=== PATIENT | female | born 1970 | race Caucasian/White ===

== ENCOUNTER 2019-04-23 10:24 | Outpatient (CLI) | payer OTHER, SELFPAY ==
--- NOTE | ~2019-04-23 | MM_ITS ---
EXAMINATION: MM screening gordon BI w rik HISTORY: Screening mammogram TECHNIQUE: Craniocaudal and mediolateral oblique 3-D tomosynthesis images were obtained and synthetic 2-D images were generated. CAD analysis was submitted and interpreted. COMPARISON: No prior mammogram is available for comparison at this institution. BREAST PARENCHYMAL COMPOSITION: The breasts are heterogeneously dense, which may obscure small masses .2 FINDINGS: Scattered benign-appearing calcifications are present. There is no evidence of suspicious m ass, calcification, or architectural distortion to suggest malignancy in either breast. IMPRESSION: 1. No mammographic evidence of malignancy. 2. Recommend routine screening mammography in one year. BI-RADS Category 2: Benign finding(s). Reviewed, dictated and finalized at location A. UNITY SUPPORT WORKER
== END 2019-04-23 10:25 | disposition home or self-care (01) ==
PROVIDERS: PCP Internal Medicine; Visit Provider Nurse Practitioner
DX: Z12.31 Encounter for screening mammogram for malignant neoplasm of breast (principal)
CPT/HCPCS: 77063; 77067

== ENCOUNTER 2019-05-23 08:59 | Outpatient (CLI) | payer OTHER, SELFPAY ==
--- NOTE | 2019-05-23 10:30 | NEURO_ITS ---
Patient Number: [id number] Impression: # Complains of numbness of hands. # Not enough to make diagnosis of Carpal Tunnel Syndrome at this time. # No ulnar neuropathy. # Normal needle/EMG exam. # Clinical correlation recommended. Nerve Conduction Studies Anti Sensory Summary Table Stim Site NR Peak (ms) P-T Amp (?V) Site1 Site2 Delta-P (ms) Dist (cm) Vincent (m/s) Left Median Anti Sensory (2-3nd Digit) Wrist 3.2 95.2 Wrist 2-3nd Digit 3.2 14.0 44 Wrist 3.2 85.6 Wrist 2-3nd Digit 3.2 14.0 44 Right Median Anti Sensory (2-3nd Digit) Wrist 2.8 94.4 Wrist 2-3nd Digit 2.8 14.0 50 Wrist 2.7 92.0 Wrist 2-3nd Digit 2.8 14.0 50 Left Radial Anti Sensory (Base 1st Digit) Wrist 1.9 32.4 Wrist Base 1st Digit 1.9 0.0 Right Radial Anti Sensory (Base 1st Digit) Wrist 2.1 23.5 Wrist Base 1st Digit 2.1 0.0 Left Ulnar Anti Sensory (5th Digit) Wrist 2.3 65.7 Wrist 5th Digit 2.3 14.0 61 Right Ulnar Anti Sensory (5th Digit) Wrist 2.4 69.1 Wrist 5th Digit 2.4 14.0 58 Motor Summary Table Stim Site NR Onset (ms) O-P Amp (mV) Site1 Site2 Delta-0 (ms) Dist (cm) Vincent (m/s) Left Median Motor (Abd Poll Brev) Wrist 3.5 2.3 Elbow Wrist 3.9 26.0 67 Elbow 7.4 1.9 Right Median Motor (Abd Poll Brev) Wrist 3.1 1.4 Elbow Wrist 3.7 24.0 65 Elbow 6.8 1.3 Left Ulnar Motor (Abd Dig Minimi) Wrist 2.6 6.9 A Elbow Wrist 4.7 27.0 57 A Elbow 7.3 6.0 Right Ulnar Motor (Abd Dig Minimi) Wrist 2.4 5.8 A Elbow Wrist 4.2 25.0 60 A Elbow 6.6 5.2 F Wave Studies NR F-Lat (ms) L-R F-Lat (ms) Left Median (Mrkrs) (Abd Poll Brev) 25.61 1.35 Right Median (Mrkrs) (Abd Poll Brev) 24.27 1.35 Left Ulnar (Mrkrs) (Abd Dig Min) 24.76 0.51 Right Ulnar (Mrkrs) (Abd Dig Min) 25.27 0.51 EMG Side Muscle Nerve Root Ins Act Fibs Amp Dur Recrt Comment Right 1stDorInt Ulnar C8-T1 Nml Nml Nml Nml Nml Right Ext Indicis Radial (Post Int) C7-8 Nml Nml Nml Nml Nml Right Ext Digitorum Radial (Post Int) C7-8 Nml Nml Nml Nml Nml Right BrachioRad Radial C5-6 Nml Nml Nml Nml Nml Right PronatorTeres Median C6-7 Nml Nml Nml Nml Nml Right Abd Poll Brev Median C8-T1 Nml Nml Nml Nml Nml Left 1stDorInt Ulnar C8-T1 Nml Nml Nml Nml Nml Left Ext Indicis Radial (Post Int) C7-8 Nml Nml Nml Nml Nml Left Ext Digitorum Radial (Post Int) C7-8 Nml Nml Nml Nml Nml Left BrachioRad Radial C5-6 Nml Nml Nml Nml Nml Left PronatorTeres Median C6-7 Nml Nml Nml Nml Nml Left Abd Poll Brev Median C8-T1 Nml Nml Nml Nml Nml MTDD
== END 2019-05-23 09:00 | disposition home or self-care (01) ==
PROVIDERS: PCP Internal Medicine; Visit Provider Internal Medicine
DX: R20.0 Anesthesia of skin (principal)
CPT/HCPCS: 95886; 95911

== ENCOUNTER 2020-05-20 07:54 | Outpatient (CLI) | payer OTHER, SELFPAY ==
--- NOTE | ~2020-05-20 | MM_ITS ---
EXAMINATION: MM screening gordon BI w rik HISTORY: Screening TECHNIQUE: Craniocaudal and mediolateral oblique 3-D tomosynthesis images were obtained and synthetic 2-D images were generated. CAD analysis was submitted and interpreted. COMPARISON: 04/23/2019 BREAST PARENCHYMAL COMPOSITION: The breasts are heterogeneously dense, which may obscure small masses . FINDINGS: There is a focal asymmetry centrally in the right breast on CC view, middle third. The left breast is stable without evidence for malignancy. IMPRESSION: 1. Focal right breast asymmetry. 2. Additional mammographic views and possible breast ultrasound are recommended. BI-RADS Category 0: Incomplete: Needs additional imaging evaluation. Reviewed, dictated and finalized at location A. IMPRESSION: 1. Focal right breast asymmetry. 2. Additional mammographic views and possible breast ultrasound are recommended . BI-RADS Category 0: Incomplete: Needs additional imaging evaluation.
== END 2020-05-20 07:55 | disposition home or self-care (01) ==
PROVIDERS: PCP Internal Medicine; Visit Provider Nurse Practitioner
DX: Z12.31 Encounter for screening mammogram for malignant neoplasm of breast (principal); R92.8 Other abnormal and inconclusive findings on diagnostic imaging of breast
CPT/HCPCS: 77063; 77067

== ENCOUNTER 2020-06-15 11:55 | Outpatient (CLI) | payer OTHER, SELFPAY ==
--- NOTE | ~2020-06-15 | MMUS_ITS ---
EXAMINATION: MM diagnostic mammo unilat RT, US breast RT complete HISTORY: Follow-up right breast asymmetry TECHNIQUE: Additional 3-D tomosynthesis images of the right breast were performed and synthetic 2-D i mages were generated. CAD analysis was submitted and interpreted. High resolution complete right shawna st ultrasound was performed. COMPARISON: 05/20/2020 BREAST PARENCHYMAL COMPOSITION: The breasts are extremely dense, which lowers the sensitivity of mamm ography. FINDINGS: MAMMOGRAPHIC FINDINGS: There are benign right breast calcifications. No suspicious masses, calcifications or architectural d istortion are identified in the right breast to suggest malignancy. ULTRASOUND: Complete right breast ultrasound: At 7:00, 4 cm from the nipple there is a cluster of microcysts ramiro uring up to 9 mm in aggregate. No suspicious masses are identified to suggest malignancy. At 11:00, 3 cm from the nipple there is a 5 mm cyst. IMPRESSION: 1. No evidence for malignancy in the right breast. Benign findings. 2. Routine yearly screening mammogram and regular clinical breast examination are recommended. BI-RADS Category 2: Benign finding(s). Reviewed, dictated and finalized at location A. IMPRESSION: 1. No evidence for malignancy in the right breast. Benign findings. 2. Routine yearly screening mammogram and regular clinical breast examination a re recommended. BI-RADS Category 2: Benign finding(s).
== END 2020-06-15 11:56 | disposition home or self-care (01) ==
LOC: ANHIMG 11:58
PROVIDERS: PCP Internal Medicine; Visit Provider Obstetrics & Gynecology Gynecology
DX: N60.01 Solitary cyst of right breast (principal)
CPT/HCPCS: 76641; 77065

== ENCOUNTER 2021-07-29 08:00 | Outpatient (CLI) | payer OTHER, SELFPAY ==
--- NOTE | ~2021-07-29 | MM_ITS ---
EXAMINATION: MM screening gordon BI w rik HISTORY: Screening mammogram TECHNIQUE: Craniocaudal and mediolateral oblique 3-D tomosynthesis images were obtained and synthetic 2-D images were generated. CAD analysis was submitted and interpreted. COMPARISON: 06/15/2020 diagnostic right mammogram and complete right breast ultrasound examination 05/20/2020, 04/23/2019 bilateral screening mammogram examinations BREAST PARENCHYMAL COMPOSITION: The breasts are heterogeneously dense, which may obscure small masses . FINDINGS: Benign calcifications are noted bilaterally. There is no evidence of suspicious mass, calci fication, or architectural distortion to suggest malignancy in either breast. There has been no suspi cious interval change. IMPRESSION: 1. No mammographic evidence of malignancy. 2. Recommend routine screening mammography in one year. BI-RADS Category 2: Benign finding(s). Reviewed, dictated and finalized at location A.
== END 2021-07-29 08:01 | disposition home or self-care (01) ==
PROVIDERS: PCP Internal Medicine; Visit Provider Nurse Practitioner
DX: Z12.31 Encounter for screening mammogram for malignant neoplasm of breast (principal)
CPT/HCPCS: 77063; 77067

== ENCOUNTER 2022-09-22 08:35 | Outpatient (CLI) | payer OTHER, SELFPAY ==
--- NOTE | ~2022-09-22 | MM_ITS ---
EXAMINATION: MM screening gordon BI w rik HISTORY: Screening TECHNIQUE: Craniocaudal and mediolateral oblique 3-D tomosynthesis images were obtained and synthetic 2-D images were generated. CAD analysis was submitted and interpreted. COMPARISON: Comparison to multiple prior studies sequentially, with oldest reviewed study dated 04/23. BREAST PARENCHYMAL COMPOSITION: The breasts are heterogeneously dense, which may obscure small masses FINDINGS: There is no evidence of suspicious mass, calcification, or architectural distortion to sugg est malignancy in either breast. There has been no suspicious interval change. IMPRESSION: 1. No mammographic evidence of malignancy. 2. Recommend routine screening mammography in one year. BI-RADS Category 1: Negative Reviewed, dictated and finalized at location A.
== END 2022-09-22 08:36 | disposition home or self-care (01) ==
PROVIDERS: PCP Internal Medicine; Visit Provider Nurse Practitioner
DX: Z12.31 Encounter for screening mammogram for malignant neoplasm of breast (principal)
CPT/HCPCS: 77063; 77067

== ENCOUNTER 2023-05-17 02:23 | Day surgery (SDC) | payer OTHER, SELFPAY ==
[2023-05-10 09:40] VITALS: BMI 22.6
--- NOTE | 2023-05-15 09:23 | SUR.PREOP ---
Patient called regarding upcoming procedure. Reviewed preop instructions, appointment times, and procedure prep.
[2023-05-17 14:19] VITALS: BP 105/60; PULSE 76; RESP 18; TEMP 36.2; O2SAT 100; BMI 21.9
--- NOTE | 2023-05-17 14:50 | P.PNAN_ITS ---
Anes - Initial Pre Proc Eval Procedure: Operation Date: 05/17/23 15:00 Proposed Procedures p Screening Colonoscopy - Yared Pedro MD Date/Time: 05/17/23 14:50 Surgeon: Yared Pedro MD Pre Op Diagnosis: neoplasm screening Patient Data Age: 52 Gender: F Height: 1.6 m Weight: 56 kg Last Vital Signs Temp 97.1 F L 05/17/23 14:19 Pulse 76 05/17/23 14:19 Resp 18 05/17/23 14:19 BP 105/60 05/17/23 14:19 Pulse Ox 100 05/17/23 14:19 O2 Del Method Room Air 05/17/23 14:19 Allergies Allergy/AdvReac Type Severity Reaction Status Date / Time No Known Allergies Allergy Verified 05/17/23 14:17 Home Medications Medication Instructions Recorded Confirmed Type Collagen Plus Powder 1 cap PO DAILY 05/10/23 05/10/23 History Immune Plus Vitamin 1 ophthalmic insert PO DAILY 05/10/23 05/10/23 History Patient hx anesthesia problems: none Family hx anesthesia problems: none Results Review: All pre-operative results and documents have been reviewed as part of the pre- operative evaluation. [facility] Family History Family History Mother Patient's mother is in good health Father Patient's father is , Onset Age: 89 Sibling Patient's sister is in good health Patient's brother is in good health Social History Social History Smoking status: Never smoker Second hand tobacco smoke exposure: No Alcohol intake: current Substance use: never Substance use type: does not use Lack of Transportation: No Lack of Food: Never True Current Housing: I Have Housing Concerned About Future Housing: No Difficulty Paying Gas/Electric Bills: No Difficulty Paying for Meds: No Currently Unemployed: No Education: High School Diploma/GED Difficulty w/ Childcare or Family Care: No Living arrangements: with family Spiritual care concerns: No Anes - Eval Final PreProcedure Day of Procedure 05/17/23 14:50 Patient weight: normal Heart: regular rate and rhythm Lungs: clear to auscultation Airway: Mallampati scale class II Neurological: alert and oriented Last oral intake: >/= 8 hours ASA classification: III Emergent: no Anesthetic plan: proceed Anesthesia type and monitoring: general GIVS and standard monitoring Results Review: All pre-operative results and documents have been reviewed as part of the pre- operative evaluation. Informed Consent: The patient's anesthetic plan and its attendant risks and benefits were discussed with the patient/family/POA. Questions were solicited and answers provided to the satisfaction of the patient/family/POA.
[2023-05-17] MEDS: LACTATED RINGERS 1,000 ML 150 ML IV CONT (15:00)
--- NOTE | 2023-05-17 15:00 | PM.HPGS ---
History of Present Illness History of Present Illness Consent: Risks, benefits, and alternatives have been discussed and questions answered. Patient agrees to proceed with procedure. Chief complaint: neoplasm screening Narrative: Noemy Rae is a 52 year old female here for first screening colonoscopy Review of Systems Review of Systems: All systems reviewed & are unremarkable except as noted in HPI and below PMFSH Past Medical History Medical History (Updated 05/17/23 @ 15:00 by Yared Pedro MD) Colon cancer screening Family History Family History Mother Patient's mother is in good health Father Patient's father is , Onset Age: 89 Sibling Patient's sister is in good health Patient's brother is in good health Social History Social History Smoking status: Never smoker Second hand tobacco smoke exposure: No Alcohol intake: current Substance use: never Substance use type: does not use Lack of Transportation: No Lack of Food: Never True Current Housing: I Have Housing Concerned About Future Housing: No Difficulty Paying Gas/Electric Bills: No Difficulty Paying for Meds: No Currently Unemployed: No Education: High School Diploma/GED Difficulty w/ Childcare or Family Care: No Living arrangements: with family Spiritual care concerns: No Meds Home Medications and Allergies Home Medications Medication Instructions Recorded Confirmed Type Collagen Plus Powder 1 cap PO DAILY 05/10/23 05/10/23 History Immune Plus Vitamin 1 ophthalmic insert PO DAILY 05/10/23 05/10/23 History Allergies Allergy/AdvReac Type Severity Reaction Status Date / Time No Known Allergies Allergy Verified 05/17/23 14:17 Vital Signs Vital Signs - 24 hr 05/17/23 14:19 Temperature 97.1 F L Pulse Rate 76 Respiratory Rate 18 Blood Pressure 105/60 Pulse Oximetry 100 Oxygen Delivery Room Air Exam Const: General: comfortable and no acute distress HENMT: Face/Nose/Sinus: Normal nares present Eyes: General: appearance normal, both eyes and all related structures Neck: Neck: no JVD Resp: Auscultation: clear to auscultation bilaterally Cardio: Rate: regular rate Rhythm: regular rhythm GI: Inspection: non-distended GI Palp: Yes Soft to palpation Skin: General skin exam: normal color Neuro: General: gait normal Speech: normal speech Extrem: General: normal to inspection Psych: Mental Status: mental status grossly normal Assessment and Plan Assessment and plan (1) Colon cancer screening: Code(s): Z12.11 - Encounter for screening for malignant neoplasm of colon Status: Acute Assessment and Plan: colonoscopy
[2023-05-17 15:21] VITALS: BP 96/61; PULSE 71; RESP 16; O2SAT 98
[2023-05-17 15:31] VITALS: BP 98/66; PULSE 67; RESP 17; O2SAT 100
[2023-05-17 15:41] VITALS: BP 112/68; PULSE 65; RESP 18; O2SAT 100
== END 2023-05-17 15:50 | disposition home or self-care (01) ==
PROVIDERS: PCP Internal Medicine; Visit Provider Internal Medicine Gastroenterology
PROC: 0DJD8ZZ Inspection of Lower Intestinal Tract, Via Natural or Artificial Opening Endoscopic (ICD-10-PCS; CPT 45378; principal; 2023-05-17 15:00)
DX: Z12.11 Encounter for screening for malignant neoplasm of colon (principal); D12.0 Benign neoplasm of cecum; D12.2 Benign neoplasm of ascending colon; D12.3 Benign neoplasm of transverse colon; K64.8 Other hemorrhoids
CPT/HCPCS: 45385; 88305; J2704; J7120

== ENCOUNTER 2023-11-07 14:47 | Outpatient (CLI) | payer OTHER, SELFPAY ==
--- NOTE | ~2023-11-07 | MM_ITS ---
EXAMINATION: MM screening gordon BI w rik HISTORY: Screening TECHNIQUE: Craniocaudal and mediolateral oblique 3-D tomosynthesis images were obtained and synthetic 2-D images were generated. CAD analysis was submitted and interpreted. COMPARISON: Comparison to multiple prior studies sequentially, with oldest reviewed study dated 04/23. BREAST PARENCHYMAL COMPOSITION: . Dense: The breasts are heterogeneously dense, which may obscure sma ll masses FINDINGS: There is no evidence of suspicious mass, calcification, or architectural distortion to sugg est malignancy in either breast. There has been no suspicious interval change. IMPRESSION: 1. No mammographic evidence of malignancy. 2. Recommend routine screening mammography in one year. BI-RADS Category 1: Negative Reviewed, dictated and finalized at location B.
== END 2023-11-07 14:48 | disposition home or self-care (01) ==
PROVIDERS: PCP Internal Medicine; Visit Provider Nurse Practitioner
DX: Z12.31 Encounter for screening mammogram for malignant neoplasm of breast (principal)
CPT/HCPCS: 77063; 77067

== ENCOUNTER 2024-11-15 08:14 | Outpatient (CLI) | payer OTHER, SELFPAY ==
--- NOTE | ~2024-11-15 | MM_ITS ---
EXAMINATION: MM screening gordon BI w rik HISTORY: Screening TECHNIQUE: Craniocaudal and mediolateral oblique 3-D tomosynthesis images were obtained and synthetic 2-D images were generated. CAD analysis was submitted and interpreted. COMPARISON: Comparison to multiple prior studies sequentially, with oldest reviewed study dated , 04/23/2019 BREAST PARENCHYMAL COMPOSITION: The breasts are heterogeneously dense, which may obscure small masses. FINDINGS: There is no evidence of suspicious mass, calcification, or architectural distortion to suggest malignancy in either breast. IMPRESSION: 1. No mammographic evidence of malignancy. 2. Recommend routine screening mammography in one year. BI-RADS Category 1: Negative Reviewed, dictated and finalized at location B.
--- NOTE | ~2024-11-15 | DEXA_ITS ---
Bone Density Report Name: OSKAR HEATH Age: 54 Sex: Female Ethnicity: White Date of : 1970 Indication: postmenopausal; screening for osteoporosis; cancer; Referring Provider: RYAN, CAMERON Study: Bone densitometry was performed. Exam Date: November 15, 2024 Accession number: [id number] Bone Density: Region BMD T-score Z-score Classification AP Spine(L1-L4) 0.960 -0.8 0.2 Normal Femoral Neck (Left) 0.671 -1.6 -0.6 Osteopenia Total Hip (Left) 0.806 -1.1 -0.5 Osteopenia Femoral Neck (Right) 0.656 -1.7 -0.8 Osteopenia Total Hip (Right) 0.769 -1.4 -0.8 Osteopenia Total Hip Mean 0.787 -1.3 -0.7 Osteopenia World Health Organization criteria for BMD impression classify patients as: Normal (T-score at or above -1.0), Osteopenia (T-score between -1.0 and -2.5), or Osteoporosis (T-score at or below -2.5). 10-year Fracture Risk(1): Major Osteoporotic Fracture 6.3% Hip Fracture 0.6% Reported Risk Factors: [place] (), Neck BMD=0.656, BMI=23.7 (1) FRAX(R) Version 3.08. Fracture probability calculated for an untreated patient. Fracture probability may be lower if the patient has received treatment. Clinical Information Provided by Patient: Has used the following medications: Vitamin D Has the following medical conditions: Cancer Patient maximum height was 63 Menopause Age: 44 No regular weight bearing exercise Drinks caffeinated beverages Onset of menses at age 14 Number of children 4 Impression: The patient has low bone mass, based on the Right Femoral Neck T-score. The patient has an estimated ten-year risk of hip fracture of 0.6% and an estimated ten-year risk of major fracture of 6.3%, based on the WHO FRAX algorithm. Discussion: BONE DENSITY IS LOW AT ONE OR MORE SKELETAL SITES. This patient's lowest T-score is low at one or more skeletal sites. It meets the World Health Organization's (WHO) criteria for ?low bone mass? (T-score between -1.0 and -2.5). The patient's 10-year risk of fracture as calculated by FRAX is less than the threshold where pharmacological therapy is recommended by the National Osteoporosis Foundation (NOF). However, all treatment decisions require clinical judgment and consideration of individual patient factors, including patient preferences, comorbidities, previous drug use, risk factors not captured in the FRAX model (e.g., frailty, falls, vitamin D deficiency, increased bone turnover, interval significant decline in bone density) and possible under or overestimation of fracture risk by FRAX. The patient should follow a healthful lifestyle (good nutrition with adequate calcium and vitamin D, and appropriate weight-bearing exercise). Follow-Up: Consider repeating this study in 2 to 3 years to reassess this patient's status, or sooner if there is some new clinical indication. Reported by: ALEM on 11/15/2024 8:58:00 AM. Reviewed, dictated and finalized at location A.
--- OUTSIDE RECORDS SUMMARY | 2024-11-15 08:21 | XMS_ITS | Clinical Summary ---
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 Shoulder pain, left 06/25/2022 Lymphadenopathy of head and neck 06/22/2022 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 Overview (06/14/2022): Added automatically from request for surgery [id number] 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 Acquired velopharyngeal insufficiency 03/18/2015 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 Immunizations Immunization Administration Dates Next Due Influenza, Quadrivalent, Maria E l Culture-based MDCK, Preservative Free, Antibiotic Free, Intramuscular 11/29/2019 Influenza, Quadrivalent, Spl it, Preservative Free, Intramuscular 11/20/2018 Influenza, Split 12/07/2017 Surgical History Surgery Date Site/Laterality Comments CHANGE G TUBE 11/25/2014 N/A IR G TUBE PLACEMENT PERCUTANEOUS 09/04/2014 N/A PALATE SURGERY G TUBE PLACEMENT 2015 TUBAL LIGATION 2003 SECTION Medical History Medical History Date Comments 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) Family History Medical History Relation Name Comments Cancer Brother Samir Diabetes Brother Samir Stroke Mother Rehana Cancer Paternal Grandmother Lina Diabetes Sister 1 Sandee Diabetes Sister 2 Sandee Cancer Sister 3 Virgen Carson Kidney disease Son Kamlesh Anesthesia problems Neg Hx Relation Name Status Comments Brother Samir Mother Rehana Alive Paternal Grandmother Lina Alive Sister 1 Sandee Sister 2 Sandee Alive Sister 3 Virgen Carson Alive Son Kamlesh Alive Social History Tobacco Use Types Packs/Day Years Used Date Smoking Tobacco: Never Smokeless Tobacco: Never Tobacco Cessation:Counseling Given: Not Answered AUDIT-C Answer Date Recorded Q1: How often do you have a drink containing alcohol? Never 06/22/2022 Q2: How many drinks containi ng alcohol do you have on a typical day when you are drinking? Patient does not drink Q3: How often do you have si x or more drinks on one occasion? Never 06/22/2022 Personal Safety Answer Date Recorded Have you ever been in or are you currently in a harmful physical or emotional relationship or is someone making you feel afraid or unsafe? 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 Gender Identity Not on file Sexual Orientation Not on file Obstetrics History Last Filed Vital Signs Vital Sign Reading Time Taken Comments Blood Pressure 104/59 06/25/2022 9:55 AM CDT Pulse 66 06/25/2022 9:55 AM CDT Temperature 36.6 C (97.9 F) 06/25/2022 9:55 AM CDT Respiratory Rate 16 06/25/2022 9:55 AM CDT Oxygen Saturation 100% 06/25/2022 9:55 AM CDT Inhaled Oxygen Concentration - - Weight 60.2 kg (132 lb 12.8 oz) 025 11:59 AM CDT Height 160 cm (5' 2.99) 06/18/2024 11: 59 AM CDT Body Mass Index 23.53 06/18/2024 11:59 AM CDT Plan of Treatment Health Maintenance Due Date Last Done Comments Breast Cancer Screening-Mammogram 1971 Cervical Cancer Screening 1971 Colon Cancer Screening-Colonoscopy 1971 Depression Screening 1971 Hepatitis C Screening 1971 DTaP/Tdap/Td Vaccine (1 - Tdap) 05/28/1982 Hepatitis B Screening 05/28/1989 Regular Well Visit/Exam 18-64 05/28/1989 Pneumococcal vaccine <65 (1 of 2 - PCV) 05/28/1990 Zoster Vaccine (1 of 2) 05/28/1990 Influenza Vaccine (#1) 2024 0, 11/20/2018, 12/07/2017 Medical Devices Implanted Type Area Hedge Fund Trader Device Identifier Shelf Expiration Date Model / Serial / Lot [employer] Weck Horizon 6 Cartridge Ligate Triangulate Cross Section Heart [id number] - [id number] Implanted:Qty: 1 on 06/22/2022 by Siva Ruff MD at [facility] l: Neck [employer] [id number] 11/29/2026 [id number] / / [id number] 2 [employer] Weck Horizon 6 Cartridge Ligate Triangulate Cross Section Heart 134734 - [id number] Implanted:Qty: 3 on 06/22/2022 by Siva Ruff MD at [facility] l: Neck [employer] [id number] 12/21/2026 [id number] / / [id number] 3 [employer] Weck Horizon 6 Cartridge Ligate Triangulate Cross Section Heart [id number] - [id number] Implanted:Qty: 2 on 06/22/2022 by Siva Ruff MD at [facility] l: Neck [employer] [id number] 09/12/2026 [id number] / / [id number] 2 [employer] Weck Horizon 6 Cartridge Ligate Triangulate Cross Section Heart 257924 - [id number] Implanted:Qty: 1 on 06/22/2022 by Siav Ruff MD at [facility] l: Neck [employer] [id number] 11/29/2026 [id number] / / [id number] 2 [employer] Weck Horizon Ligate Triangulate Cross Section Wire Small Wide Latex Free 078623 - [id number] Implanted:Qty: 1 on 06/22/2022 by Siva Ruff MD at [facility] l: Neck [employer] [id number] 03/08/2027 / / [id number] 3 [employer] Weck Horizon 6 Cartridge Ligate Triangulate Cross Section Heart [id number] - [id number] Implanted:Qty: 1 on 06/22/2022 by Siva Ruff MD at [facility] l: Neck [employer] [id number] 11/29/2026 / / [id number] 2 [employer] Weck Horizon 6 Cartridge Ligate Triangulate Cross Section Heart 215334 - [id number] Implanted:Qty: 1 on 06/22/2022 by Siva Ruff MD at [facility] l: Neck [employer] [id number] 11/29/2026 / / [id number] 2 [employer] Weck Horizon Ligate Triangulate Cross Section Wire Small Wide Latex Free [id number] - [id number] Implanted:Qty: 1 on 06/22/2022 by Siva Ruff MD at [facility] l: Neck [employer] [id number] 03/08/2027 / / [id number] 3 [employer] Weck Horizon Ligate Triangulate Cross Section Wire Small Wide Latex Free 083514 - [id number] Implanted:Qty: 1 on 06/22/2022 by Siva Ruff MD at [facility] l: Neck [employer] [id number] 03/08/2027 / / [id number] 3 [employer] Weck Horizon 6 Cartridge Ligate Triangulate Cross Section Heart [id number] - [id number] Implanted:Qty: 1 on 06/22/2022 by Siva Ruff MD at [facility] l: Neck [employer] [id number] 11/29/2026 / / [id number] 2 [employer] Weck Horizon 6 Cartridge Ligate Triangulate Cross Section Heart [id number] - [id number] Implanted:Qty: 1 on 06/22/2022 by Siva Ruff MD at [facility] l: Neck [employer] [id number] 12/26/2026 [id number] / / [id number] Insurance [facility] PPO Advance Directives For more information, please contact: [phone] * Full Code (Latest Code Status on File) Date Activated Date Inactivated Comments 06/22/2022 9:31 PM 06/25/2022 5:16 PM Care Teams Welcome Center Attendant Relationship Specialty Start Date End Date William Perez MD [address] [place] [address] PCP - General 04/12/17 Mikayla Malin DPT [address] [facility] [address] [place] [address] Physical Therapist Physical Therapy 07/19/22 Jatin Rollins MD [id number] [facility] [address] [place] [address] Radiation Oncologist Radiation Oncology 08/06/22
--- OUTSIDE RECORDS SUMMARY | 2024-11-15 08:21 | XMS_ITS ---
Author Organization 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 Past Treatment and Therapy Plans No past plan information found. Lifetime Dose Tracking * Chemical Lifetime Dose Automatic Entry Manual Entr y DLP 1,882 mGycm 1,882 mGycm 0 mGycm
--- OUTSIDE RECORDS SUMMARY | 2024-11-15 08:21 | XMS_ITS | Clinical Summary ---
Author Organization [facility] [employer] Address [address] [place] [address] Care Team Providers Care Radio Interference Investigator Name Role Phone William Perez Primary Care Provider [phone] Source Comments [facility] [employer] [employer],non-owned Affiliates and Associated Physician Practices is amultiple site organization consisting of ambulatory clinics and hospital sitesin [place], [place]. This disclosure is being madepursuant to the Care Everywhere program and may not contain all information available regarding this patient. Last updated 17.[employer] [facility] Allergies No known active allergies Medications * Be aware that medications may not be up to date on this document. Alwaysverify current medications with the patient. benzonatate (TESSALON PERLES) 100 MG capsuleIndicatio ns:Acute bronchitis, unspecified organism Take 1-2 capsules po TID prn 30 capsule 9 Active albuterol HFA (PROVENTIL;BI HILLARY;PROAIR) 108 (90 Base) MCG/ACT inhalerIndicatio ns:Acute bronchitis, unspecified organism Inhale 2 puffs by mouth every 4 hours as needed for Shortness of Breath, Wheezing or Cough 1 Inhaler 9 Active Social History Tobacco Use Types Packs/Day Years Used Date Smoking Tobacco: Never Smokeless Tobacco: Never Comments No Sex and Gender Information Value Date Recorded Sex Assigned at Not on file Legal Sex Female 8:13 AM [employer] Gender Identity Not on file Sexual Orientation Not on file Last Filed Vital Signs Vital Sign Reading Time Taken Comments Blood Pressure 92/58 08/17/2018 9:38 AM CDT Pulse 100 08/17/2018 9:38 AM CDT Temperature 37.8 C (100.1 F) 08/17/2018 9:38 AM CDT Respiratory Rate 15 08/17/2018 9:38 AM CDT Oxygen Saturation 97% 08/17/2018 9:38 AM CDT Inhaled Oxygen Concentration - - Weight 56.7 kg (125 lb) 08/17/2018 9:38 AM CDT Height 158.8 cm (5' 2.5) 08/17/2018 9:38 AM CDT Body Mass Index 22.5 08/17/2018 9:38 AM CDT Plan of Treatment Health Maintenance Due Date Last Done Comments COLOGUARD (AGES 45-75) - COL ON CA SCREENING 1971 COLON MONITORING 1971 COLONOSCOPY - COLON CA SCREENING 1971 CT COLONOGRAPHY - COLON CA SCREENING 1971 Colorectal Cancer Screening 1971 FIT - COLON CA SCREENING 1971 FLEX SIG - COLON CA SCREENING 1971 LIPID TESTING 1971 MAMMOGRAM 1971 HIV SCREENING 05/28/1986 HEPATITIS C SCREENING 05/24/1989 DTAP/TDAP/TD VACCINES (1 - Tdap) 05/28/1990 HEPATITIS B VACCINE (1 of 3 - 19+ 3-dose series) 05/28/1990 PAP SMEAR 05/28/1992 PNEUMOCOCCAL VACCINE 50+ (1 of 1 - PCV) 05/28/2021 ZOSTER VACCINE (1 of 2) 05/28/2021 DEPRESSION SCREENING 03/06/2024 COVID-19 VACCINE (1 - 2023-2 5 season) 2024 INFLUENZA VACCINE (#1) 2024 HIB VACCINE Aged Out No longer eligi ble based on patient's age to complete this topic HPV VACCINE Aged Out No longer eligi ble based on patient's age to complete this topic MENINGOCOCCAL (Group B) VACC INE SHARED DECISION-MAKING Aged Out No longer eligibl e based on patient's age to complete this topic MENINGOCOCCAL GROUPS A/C/Y/W VACCINE Aged Out No longer eligible b ased on patient's age to complete this topic Insurance [employer] SELF PAY NO INSURANCE Member Subscriber Plan / Payer (Ef fective for All Dates) Name:Noemy Heath Member ID:Not on file Relation to Subscriber:Not on file Name:NOEMY HEATH Subscriber ID:Not on file Address: [address] [place] [address] Payer ID:Not on file Group ID:Not on file Type:Self Pay Address: [place], [place] SELF PAY NO INSURANCE Member Subscriber Plan / Payer (Ef fective for All Dates) Name:Noemy Heath Member ID:Not on file Relation to Subscriber:Not on file Name:NOEMY HEATH Subscriber ID:Not on file Address: [address] [place] [address] Payer ID:Not on file Group ID:Not on file Type:Self Pay Address: [place], [place] SELF PAY NO INSURANCE Member Subscriber Plan / Payer (Ef fective for All Dates) Name:Noemy Heath Member ID:Not on file Relation to Subscriber:Not on file Name:NOEMY HEATH Subscriber ID:Not on file Address: [address] [place] [id number] Payer ID:Not on file Group ID:Not on file Type:Self Pay Address: [place], [place] Care Teams Radio Interference Investigator Relationship Specialty Start Date End Date William Perez DO [address] [facility] [address] [id number] PCP - General Internal Medicine 03/16/17
== END 2024-11-15 08:15 | disposition home or self-care (01) ==
PROVIDERS: PCP Internal Medicine; Visit Provider Nurse Practitioner
DX: Z12.31 Encounter for screening mammogram for malignant neoplasm of breast (principal); Z78.0 Asymptomatic menopausal state; M85.852 Other specified disorders of bone density and structure, left thigh; M85.851 Other specified disorders of bone density and structure, right thigh
CPT/HCPCS: 77063; 77067; 77080

== ENCOUNTER 2024-11-26 13:45 | Outpatient (CLI) | payer OTHER, SELFPAY ==
--- NOTE | ~2024-11-26 | XR_ITS ---
EXAMINATION: XR abdomen/kub 1V, 11/26/2024 13:50 CDT HISTORY: R10.9 - Unspecified abdominal pain, CHECKING FOR STONE COMPARISON: No comparisons available. Technique: 3 view. Findings: Bowel gas pattern unremarkable. No obstruction. No free air. No abnormal calcifications There are phleboliths noted in the pelvis with no gross renal calculi Impression: 1. No acute abnormality. Reviewed, dictated and finalized at location A. Impression: 1. No acute abnormality.
== END 2024-11-26 13:46 | disposition home or self-care (01) ==
PROVIDERS: PCP Internal Medicine; Visit Provider Internal Medicine
DX: R10.9 Unspecified abdominal pain (principal)
CPT/HCPCS: 74018